=== PATIENT | female | born 1960 | race Caucasian/White ===

== ENCOUNTER 2018-05-27 18:26 | Emergency (ER) | payer BC ==
[2018-05-27] MEDS ORDERED: fentaNYL* 50 MCG/ML 2 ML VIAL (100 MCG VIAL) IV SLOW PU ONE (21:49)
[2018-05-27] MEDS ORDERED: Midazolam* 1 MG/ML 5 ML VIAL (5 MG) SLOW PUSH ONE (21:49)
[2018-05-27] MEDS ORDERED: NS 0.9% 1000 ML** 1,000 ML IV ONE (21:50)
[2018-05-28 01:03] VITALS: BP 160/97
--- NOTE | 2018-05-28 04:44 | ED ---
Upper Extremity Pain - HPI Summary HPI Summary: The patient is a 57 year old female who [facility] chief complaint of right shoulder pain. The patient was performing a "wheel out" when she heard a "popping" sound. The onset was 1800 03/26/19 and the patient was exercising. The pain is located to be at the top of the deltoid according to the patient. The patient is in pain distress and is unable to move the right shoulder significantly compared to baseline. The pain is rated to be 10/10 in severity. The symptoms are aggravated by movement. The symptoms are alleviated by nothing. - History of Current Complaint Chief Complaint: EDExtremityUpper Stated Complaint: RIGHT SHOULDER INJURY Time Seen by Provider: 05/27/18 21:40 Hx Obtained From: Patient Mechanism Of Injury: Other - Exercising Onset/Duration: Started Hours Ago - at 1800 on 03/26/19 Timing: Constant Severity Initially: Severe Severity Currently: Severe Pain Location: Shoulder - Right Aggravating Factor(s): Movement Alleviating Factor(s): Nothing Associated Signs & Symptoms: Positive: Negative - Allergies/Home Medications Allergies/Adverse Reactions: Allergies Allergy/AdvReac Type Severity Reaction Status Date / Time aspirin Allergy Shortness Verified 05/27/18 19:01 of Breath Sulfa (Sulfonamide Allergy Rash And Verified 05/27/18 19:01 Antibiotics) Itching PMH/Surg Hx/FS Hx/Imm Hx Endocrine/Hematology History: Denies: Hx Diabetes, Hx Thyroid Disease Cardiovascular History: Denies: Hx Hypercholesterolemia, Hx Hypertension, Hx Pacemaker/ICD, Hx Peripheral Vascular Disease Respiratory History: Reports: Hx Asthma Denies: Hx Chronic Obstructive Pulmonary Disease (COPD) GI History: Reports: Hx Gastroesophageal Reflux Disease - well controlled Denies: Hx Ulcer Musculoskeletal History: Reports: Hx Arthritis - left ankle, Hx Osteoporosis Denies: Hx Rheumatoid Arthritis Sensory History: Reports: Hx Contacts or Glasses - READING GLASSES Denies: Hx Cataracts, Hx Glaucoma, Hx Hearing Aid Opthamlomology History: Reports: Hx Contacts or Glasses - READING GLASSES Denies: Hx Cataracts, Hx Glaucoma Neurological History: Denies: Hx Headaches, Hx Seizures, Hx Transient Ischemic Attacks (TIA) Psychiatric History: Denies: Hx Anxiety, Hx Depression, Hx Panic Disorder - Surgical History Surgery Procedure, Year, and Place: sinus polyp removal x3. Right foot metal plate (2010). ORIF LEFT ANKLE 2014 [facility] Hx Anesthesia Reactions: No Infectious Disease History: No Infectious Disease History: Denies: Hx Clostridium Difficile, Hx Hepatitis, Hx Human Immunodeficiency Virus (HIV), Hx of Known/Suspected MRSA, Hx Shingles, Hx Tuberculosis, History Other Infectious Disease, Traveled Outside the [place] in Last 30 Days - Family History Known Family History: Positive: Non-Contributory - Social History Alcohol Use: Daily Alcohol Amount: 1-2 glasses of wine daily Hx Substance Use: No Substance Use Type: Reports: None Hx Tobacco Use: No Smoking Status (MU): Former Smoker Have You Smoked in the Last Year: No Review of Systems Constitutional: Negative Eyes: Negative ENT: Negative Cardiovascular: Negative Respiratory: Negative Gastrointestinal: Negative Genitourinary: Negative Musculoskeletal: Other - Right Shoulder pain Skin: Negative Neurological: Negative Positive: Anxious - Pain Distress All Other Systems Reviewed And Are Negative: Yes Physical Exam - Summary Physical Exam Summary: VITAL SIGNS: Reviewed. GENERAL: Patient is a well-developed and nourished (FEMALE) who is lying comfortable in the stretcher. Patient is not in any acute respiratory distress. HEAD AND FACE: No signs of trauma. No ecchymosis, hematomas or skull depressions. No sinus tenderness. EYES: PERRLA, EOMI x 2, No injected conjunctiva, no nystagmus. EARS: Hearing grossly intact. Ear canals and tympanic membranes are within normal limits. MOUTH: Oropharynx within normal limits. NECK: Supple, trachea is midline, no adenopathy, no JVD, no carotid bruit, no c- spine tenderness, neck with full ROM. CHEST: Symmetric, no tenderness at palpation LUNGS: Clear to auscultation bilaterally. No wheezing or crackles. CVS: Regular rate and rhythm, S1 and S2 present, no murmurs or gallops appreciated. ABDOMEN: Soft, non-tender. No signs of distention. No rebound no guarding, and no masses palpated. Bowel sounds are normal. EXTREMITIES: decreased range of motion of Right Shoulder because of pain NEURO: Alert and oriented x 3. No acute neurological deficits. Speech is normal and follows commands. Neuro exam in Intact SKIN: Dry and warm Triage Information Reviewed: Yes Vital Signs On Initial Exam: Initial Vitals Temp Pulse Resp BP Pulse Ox 99.0 F 76 18 182/91 99 05/27/18 18:55 05/27/18 18:55 05/27/18 18:55 05/27/18 18:55 05/27/18 18:55 Vital Signs Reviewed: Yes Procedures - Procedure Summary Procedure Summary: Moderate Sedation: Following moderate sedation protocol: Patient given 5 mg of Versed and 100 mg of fentanyl via IV. Moderate sedation accomplished for procedure Vital signs remained stable through out procedure. No reversal agents used Sedation lasted 15 minutes. We used traction/counter traction and an attempt to reduce right shoulder dislocation was done. - Joint Reduction Right Joint Reduction Site: shoulder (R) Conscious Sedation: Yes - Moderate Sedation protocol described in Procedural Summary. Reduction Attempts: 1 - Using Traction/counter Traction Post Joint Reduction Film: joint reduced Diagnostics - Vital Signs Vital Signs Temp Pulse Resp BP Pulse Ox 05/28/18 01:02 98.2 F 74 18 160/97 97 05/27/18 22:39 69 164/82 100 05/27/18 22:34 70 164/104 99 05/27/18 22:29 69 171/90 97 05/27/18 22:24 75 149/99 100 05/27/18 22:19 85 16 157/82 100 05/27/18 22:15 90 163/91 100 05/27/18 22:00 77 14 100 05/27/18 21:54 82 164/84 100 05/27/18 20:56 98.4 F 81 20 151/78 100 05/27/18 18:55 99.0 F 76 18 182/91 99 - Laboratory Lab Statement: Any lab studies that have been ordered have been reviewed, and results considered in the medical decision making process. - Radiology First Shoulder X-ray Radiology Interpretation Completed By: ED Physician Summary of Radiographic Findings: First shoulder X-ray reveals dislocation versus subluxation of the right shoulder as per ED Physcian. Post-reduction Shoulder X-ray Radiology Interpretation Completed By: ED Physician Summary of Radiographic Findings: Post Reduction shoulder X-ray reveals dislocation vs subluxation of the right shoulder no change from previous X-ray as per ED Physician. - CT Upper Extermity CT CT Interpretation Completed By: Radiologist Summary of CT Findings: Upper Extremity CT reveals as per radiologist report: 1. Anterior inferior dislocation of left shoulder with fairly extensive. fragmentation of the anterior mid to lower bony glenoid. There is an old. Hill- Sachs lesion of the humeral head without acute humeral fracture seen. 2. Associated hemarthrosis. The ED Physician has reviewed this radiology report. Course/Dx - Course Course Of Treatment: The patient is a 57 year old female who is presenting to the [facility] with a chief complaint of right shoulder pain. The patient recieved an intial right shoulder X-ray revealing dislocation versus subluxation signs. We consulted Dr. Camejo at 2140 and he recommended a Anxillary lateral view of a X-ray of the Right shoulder. After viewing the X-ray results at 2210, he recommended reviewing a CT scan of the right shoulder. Upon viewing the CT results; he recommends that the patient follow up with him within 1 day and that nothing needs to be done at this point other than a sling for the patient' s arm. The patient recieved a joint reduction of the right shoulder with moderate conscious sedation. The patient was given a sling and we discussed this plan. The patient was agreeable to discharge and was discharged home. The dx will be glenoid fracture and subluxation of the right shoulder. - Diagnoses Provider Diagnoses: Subluxation of right shoulder joint, Glenoid fracture of shoulder - Physician Notifications Discussed Care of Patient With: Hola Camejo - We consulted protocol and patient care. Time Discussed With Above Provider: 21:40 Instructed by Provider To: Other - Joint reduction and Imaging orders along with a recommendation for the patient to follow up with him for the following day. Discharge - Sign-Out/Discharge Documenting (check all that apply): Patient Departure - Discharge Home Patient Received Moderate/Deep Sedation with Procedure: Yes - Moderate Sedation Protocol described in Procedural summary - Discharge Plan Condition: Stable Disposition: HOME Prescriptions: oxyCODONE/Acetamin 5/325 MG* [Percocet 5/325 TAB*] 1 tab PO Q6H PRN #14 tab MDD 4 PRN Reason: Pain Patient Education Materials: Shoulder Dislocation (ED), Procedural Sedation (ED ) Referrals: Hola Camejo MD [Medical Doctor] - Marlene Goodwin MD [Primary Care Provider] - Additional Instructions: RETURN TO THE EMERGENCY DEPARTMENT FOR CHANGING OR WORSENING SYMPTOMS. FOLLOW UP WITH Dr. Camejo Tomorrow. We recommend using the sling for shoulder until then. - Attestation Statements Document Initiated by Scribe: Yes Documenting Scribe: Jeffery Callahan Provider For Whom Scribe is Documenting (Include Credential): Dr. Romelia Sharma Scribe Attestation: IJeffery, scribed for Dr. Romelia Sharma on 05/28/18 at 0520. Status of Scribe Document: Ready
== END 2018-05-28 01:02 | disposition home or self-care (01) ==
LOC: ED 18:26
DX: S43.001A Unspecified subluxation of right shoulder joint, initial encounter (principal); S42.141A Displaced fracture of glenoid cavity of scapula, right shoulder, initial encounter for closed fracture; Z87.891 Personal history of nicotine dependence; Y93.B9 Activity, other involving muscle strengthening exercises; Y92.9 Unspecified place or not applicable
CPT/HCPCS: 23650; 96361; 96374; 96375; 99283; J2250; J3010

== ENCOUNTER 2018-07-20 10:35 | Emergency (ER) | payer BC ==
--- OUTSIDE RECORDS SUMMARY | 2018-07-20 10:46 | XMS REPORT | Continuity of Care Document ---
:1960 External Reference #:[id number] Author Name Eli Knight Care Team Providers Name Role Phone Marlene Goodwin MD Primary Care Physician Unavailable Payers Date Identification Numbers Payment Provider Subscriber Effective: 2018 Policy Number: [id number] GENEVIEVE Recinos PayID: [id number] [address] [phone] [place] Kauffman [address] Effective: 2018 Policy Number: [id number] Chandni Recinos Onset: 2018 Group Number: [id number] [address] [address] Group Name: F: [phone] [place] [address] PayID: [id number] Onset: 2012 Policy Number: [id number] Chandni Recinos Group Name: [phone] Fax [address] [phone] PayID: [id number] [place], [place] Advance Directives Description No Information Available Problems Description No Information Family History Date Family Member(s) Observation Comments General Diabetes General Stroke General Cancer : (age Father due to Hyperlipidemia 75 Years) Hypertension : (age Mother due to Cancer, HTN, Stroke, DM, CAD ? age 81 Years) Breast 70's (Stents) - Heavy Smoker First Son 19 Second Son 17 Seizure disorder, High function Autism First Brother Hypertension Hyperlipidemia First Brother 56 Second Brother Hypertension Hyperlipidemia Second Brother 55 First Sister Heat disease Arrhythmia, Congenital defect of aortic valve First Sister 53 Social History Type Date Description Comments Sex Unknown Marital Status Lives With Spouse Occupation [employer] ETOH Use Currently consumes 7 per week alcohol Tobacco Use Start: Unknown End: Patient is a former smoked a little in Unknown smoker college Smoking Status Reviewed: 07/09/18 Patient is a former smoked a little in smoker college Exercise Type/Frequency Exercises regularly Daily Allergies, Adverse Reactions, Alerts Date Description Reaction Status Severity Comments 08/01/2010 Sulfa Active 08/01/2010 Aspirin Active Medications Medication Date Status Form Strength Qnty SIG Indications Ordering Provider Serevent Diskus 08/01/ Active Aerosol 50mcg/Dos 1unit 1 puff Inez 2010 e s twice daily Fritz Crowley, FACP Nasacort Aq 08/01/ Active Aerosol 55mcg/Act 1unit use 1 spray Inez2010 s ea nostril Carline, q prn M.D., FACP Zyrtec Allergy 08/01/ Active Capsules 10mg 30cap 1 capsule 2010 s by mouth Carline, daily M.D., FACP Xolair / Active Solution 150mg Unknown 0000 Rec Singulair / Active Chewtabs 4mg 30uni 1 tablet q Unknown 0000 ts hours sleep Qvar / Active Aerosol 80mcg/Act 2 puff Unknown 0000 twice a day Symbicort 00/ Active Unknown 0000 Biotin 00/ Active Unknown 0000 Vitamin B12 / Active Unknown 0000 Citracal +D3 / Active Unknown 0000 Centrum / Active Unknown 0000 Align / Active Unknown 0000 Krill Oil / Active Unknown [place]-3 0000 Zantac 75 00/00/ Active Unknown 0000 Keflex /08/ Hx Capsules 500mg 28cap 1 tab by Iraj 2015 - s mouth four Hank, 05/29/ times a day M.D. 2019 Oxycodone HCL 08/22/ Hx Tablets 5mg 40tab 1-2 tabs by Iraj 2015 - s mouth every Hank, 05/29/ 4-6 hours M.D. 2019 as needed Lotrimin Ultra 10/06/ Hx Cream 1% 1tube apply to Iraj 2014 - heel skin Hank 08/09/ twice daily M.D. 2016 Knee Scooter 04/01/ Hx 1unit 824.8 Iraj Mckinney 08/09/ M.D. 2016 Ranitidine HCL 08/01/ Hx Solution 150mg/6ML take by Inez 2010 - mouth twice Carline, 05/29/ daily M.D., FACP 2019 Miacalcin 03/02/ Hx Solution 200Unit/M 3.7ml 1 inh Vibha 2009 - L intranasal Cotton, 10/26/ daily M.D. 2010 Flovent HFA / Hx Aerosol 110mcg/Ac 12gm 2 puffs Inez 0000 - t twice daily Carline, 08/01/ M.D., FACP 2010 Triamcinolone / Hx as directed Unknown Acetonide 0000 - 2018 Immunizations CPT Code Status Date Vaccine Lot # [id number] Given 02/15/2009 Influenza Virus Vaccine, Pandemic Formulation 12223 Given 02/15/2009 Administration Swine Flu Shot 19476 Given 02/06/2008 Influenza Virus 3Yrs & Over 23490 Given 02/06/2008 Influenza Virus 3Yrs & Over Vital Signs Date Vital Result Comment 07/09/2018 11:08am Height 60 inches 5'0" Weight 116.00 lb BP Systolic 118 mmHg BP Diastolic 64 mmHg Pain Level 0 BMI (Body Mass Index) 22.7 kg/m2 06/13/2018 11:29am Height 60 inches 5'0" Weight 115.00 lb BP Systolic 138 mmHg BP Diastolic 102 mmHg Pain Level 0 varies w/ movement BMI (Body Mass Index) 22.5 kg/m2 05/30/2018 1:18pm Height 60 inches 5'0" Weight 115.00 lb Heart Rate 100 /min BP Systolic 170 mmHg BP Diastolic 94 mmHg Respiratory Rate 18 /min Pain Level 0 Increases with activity BMI (Body Mass Index) 22.5 kg/m2 09/15/2015 12:58pm Height 60 inches 5'0" Weight 109.00 lb Heart Rate 60 /min BP Systolic Sitting 110 mmHg BP Diastolic Sitting 68 mmHg Respiratory Rate 16 /min Body Temperature 99.1 F Pain Level 7 when area is touched BMI (Body Mass Index) 21.3 kg/m2 09/03/2015 11:39am Height 60 inches 5'0" Weight 109.00 lb Body Temperature 99.2 F Pain Level 0 BMI (Body Mass Index) 21.3 kg/m2 08/10/2015 3:52pm Height 60 inches 5'0" Weight 109.00 lb Heart Rate 74 /min BP Systolic 195 mmHg BP Diastolic 99 mmHg BMI (Body Mass Index) 21.3 kg/m2 01/05/2015 1:50pm Height 60 inches 5'0" Weight 110.00 lb Pain Level 0 BMI (Body Mass Index) 21.5 kg/m2 10/06/2014 2:45pm Height 60 inches 5'0" Weight 110.00 lb Pain Level 0 BMI (Body Mass Index) 21.5 kg/m2 07/07/2014 3:41pm Height 60 inches 5'0" Weight 110.00 lb Pain Level 0 BMI (Body Mass Index) 21.5 kg/m2 06/09/2014 2:37pm Height 60 inches 5'0" Weight 110.00 lb Pain Level 4 BMI (Body Mass Index) 21.5 kg/m2 05/12/2014 3:08pm Height 60 inches 5'0" Weight 110.00 lb Pain Level 0 BMI (Body Mass Index) 21.5 kg/m2 04/17/2014 9:57am Height 60 inches 5'0" Weight 110.00 lb Heart Rate 65 /min Body Temperature 98.7 F Pain Level 6 BMI (Body Mass Index) 21.5 kg/m2 12/26/2012 9:11am Height 60 inches 5'0" Weight 107.00 lb Heart Rate 71 /min BP Systolic 132 mmHg BP Diastolic 79 mmHg BMI (Body Mass Index) 20.9 kg/m2 10/26/2010 2:48pm Height 59 inches 4'11" Weight 106.00 lb Heart Rate 64 /min BP Systolic Sitting 108 mmHg BP Diastolic Sitting 76 mmHg BMI (Body Mass Index) 21.4 kg/m2 08/01/2010 2:54pm Height 59 inches 4'11" Weight 106.00 lb BMI (Body Mass Index) 21.4 kg/m2 Results Test Date Facility Test Result H/L Range Note Laboratory test 08/23/2015 [facility] Surgical SEE RESULT [address] [place] [address] [phone] CBC No Diff 04/06/2014 [facility] White Blood 4.9 10^3/uL N 4.8-10.[address] [place] [address] [phone] Red Blood Count 4.37 10^6/uL N 4.0-5.4 Hemoglobin 14.2 g/dL N 12.0-16.0 Hematocrit 41 % N 35-47 Mean Corpuscular Volume 95 fL N 80-97 Mean Corpuscular Hemoglobin 32 pg High 27-31 Mean Corpuscular HGB Conc 34 g/dL N 31-36 Red Cell Distribution Width 13 % N 10.5-15 Platelet Count 305 10^3/uL N 150-450 Mean Platelet Volume 6 um3 Low 7.4-10.4 1 SEE RESULT BELOW Name: ARVIN RECINOS : [address]: Iraj Mckinney MD Acct: [id number] Unit: [id number] AGE: 55 Location: OR Re08/23/15 SEX: F Status: REG [facility] [place] SPEC: [id number] DARNELL: 08/23/15- SUBM DR: Iraj Mckinney MD REQ: [id number] RECD: 08/23/15-1225 STATUS: SOUT _ ORDERED: LEVEL I FINAL DIAGNOSIS Left ankle, excision: Foreign body (orthopedic hardware) (Gross diagnosis). PRE-OPERATIVE DIAGNOSIS Painful hardware left ankle. GROSS DESCRIPTION The specimen is received fresh labeled, Left Ankle Hardware, and consists of two silver metallic elongated plates measuring 5.7 x 0.9 x 0.1 cm and 8.1 x 0.9 x 0.1 cm. The following inscriptions are identified, respectively: [phone] [id number]; [phone] [id number]. Received separately in the same container are ten silver metallic threaded and partially threaded jerri-headed screws ranging from 1.2 x 0.3 cm to 4.0 x 0.3 cm. Per established hospital medical staff protocol, no tissue is submitted. Gross only. Signed (signature on file) Sugey Reyes MD 1030 END OF REPORT * ML=Testing performed at Main Lab DEPARTMENT OF PATHOLOGY, [address] [place] [address] Tin Mcnally M.D. Director [facility] # [id number] Procedures Date Code Description Status 08/23/2015 Removal Implant Deep Wire,Screw Nail,Carlos Or Plate Completed 08/23/2015 Removal Implant Deep Wire,Screw Nail,Carlos Or Plate Completed 04/17/2014 79657 Rad Exam; Foot Comp Completed 04/17/2014 49648 Short Leg Cast Completed 04/06/2014 21749 ORIF Open TX Bimalleolar Ankle FX Includes Internal Completed Fixation 04/06/2014 44356 ORIF Open TX Bimalleolar Ankle FX Includes Internal Completed Fixation 09/19/2010 [id number] Bone Mineral Density Test Completed 09/16/2010 99338679 Mammogram Completed 08/17/2010 [id number] Colonoscopy Completed 02/18/2009 [id number] Bone Mineral Density Test Completed 02/18/2009 [id number] Mammogram Completed Encounters Type Date Location Provider Dx Diagnosis Office Visit 06/13/2018 Orthopedic Hola Romo S42.141D Disp fx of 11:15a Services Of Charlie Camejo MD glenoid cav of scapula, r ldr, 7thD S43.011D Anterior subluxation of right humerus, subsequent encounter S46.011D Strain of musc/tend the rotator cuff of right shoulder, subs Office Visit 05/30/2018 1:00p Orthopedic Hola Romo S42.141A Disp fx of Services Of MD Nell glenoid cavity C.M.A. of scapula, right shoulder, init S43.011A Anterior subluxation of right humerus, initial encounter Office Visit 08/10/2015 Orthopedic Iraj T84.84xD Pain due to internal 3:50p Services Of Fritz Mckinney orthopedic prosth C.M.A. dev/grft, subs Office Visit 01/05/2015 Orthopedic Iraj S82.842D Displ bimalleol fx l 1:50p Services Of Fritz Mckinney low leg, subs for C.M.A. clos fx w routn heal Office Visit 10/06/2014 Orthopedic Iraj 110.4 Dermatophytosis Foot 2:15p Services Of Fritz Mckinney C.M.AMario Office Visit 07/07/2014 Orthopedic Iraj 824.8 FX Ankle Unspec 3:15p Services Of Fritz Mckinney Closed C.M.A. 734 Flat Foot 715.37 Osteoarthrosis Localzd Not Spec Prime Or 2Ndy Ankle & Foot 824.4 FX Ankle Bimalleolar Closed V54.09 Other Aftercare Involving Internal Fixation Device Office Visit 04/17/2014 9:30a Orthopedic Services Iraj Mckinney 824.8 FX Ankle Of Jose.MSelene Hu Unspec Closed V54.09 Other Aftercare Involving Internal Fixation Device V58.32 Encounter For Removal Of Sutures 715.17 Osteoarthrosis Localized Prim Ankle & Foot V53.7 Fitting & Adjustment Other Device Orthopedic Office Visit 04/06/2014 7:00a Orthopedic Iraj 824.4 FX Ankle Services Of Fritz Mckinney Bimalleolar Closed C.M.A. Office Visit 12/26/2012 9:00a Orthopedic Keith 844.9 Sprains & Strains Services Of Fritz Mims Knee & Leg Unspec C.M.A. Office Visit 10/26/2010 3:00p DO Not Use Dasrhana Varn, 733.00 Osteoporosis [facility] N.[facility]. Unspec Office Visit 08/01/2010 3:00p DO Not Use Darshana Varn, V70.0 Examination [facility] [facility] General Medical Routine AT Health Care Facility V72.31 Routine Lube Technician Examination 272.4 Hyperlipidemia Other Unspec 493.90 Asthma Unspec W/O Status Asthmaticus 733.90 Bone & Cartilage Disorder Unspec Office 02/09/2009 DO Not Use Darshana V72.31 Routine Lube Technician Examination Visit 10:45a [facility] Varn, N.P. Office 04/16/2008 DO Not Use Darshana 272.4 Hyperlipidemia Other Visit 10:45a [facility] Varn, N.P. Unspec Office 12/17/2007 DO Not Use Darshana 272.0 Hypercholesterolemia Visit 11:30a [facility] Varn, N.P. Pure Office 12/03/2007 DO Not Use Darshana V72.31 Routine Lube Technician Examination Visit 2:30p [facility] Varn, N.P. Plan of Treatment Future Appointment(s):08/06/2018 1:45 pm - Hola Camejo MD at [facility]07/09/2018 - Hola Camejo, MDS42.141D Displaced fracture of glenoid cavity of scapula, right shoulNew Therapy: Physical TherapyFollow up:Follow up: 4 weeks
[2018-07-20] MEDS ORDERED: predniSONE TAB* 20 MG PO ONE (11:03)
[2018-07-20] MEDS ORDERED: Albuterol/Ipratropium NEB.SOL* Albuterol 2.5 MG/Ipratropium 0.5 MG 3 ML INH ONE (11:07)
--- NOTE | 2018-07-20 11:07 | ED ---
Shortness of Breath - HPI Summary HPI Summary: Patient is a 58-year-old female with a history of COPD/asthma presenting to the ED with a one-week worsening history of shortness of breath. She states she has been taking her albuterol inhaler approximately every hour for relief and this has been worsening. She is currently on Xolair, but has been out of this prescription 2 weeks. She believes this is the reason for her worsening shortness of breath. She has also not been on steroids recently. No recent history of antibiotics. She endorses a cough which is wet, this is without production. She denies any fevers, sweats, chills. She is able to speak in full sentences, but due to her albuterol inhaler use, she has been having shakes more frequently. She is in no acute distress on arrival. She is currently a patient of Dr. Goodwin and Dr. Vazquez. - History of Current Complaint Chief Complaint: EDShortnessOfBreath Time Seen by Provider: 07/20/18 10:50 Hx Obtained From: Patient Onset/Duration: Sudden Onset Timing: Constant Current Severity: Mild Dyspnea At: Rest Associated Signs & Symptoms: Negative - Risk Factors Pulmonary Embolism: Negative Cardiac: Negative Pseudomonas: Negative Tuberculosis: Negative - Allergy/Home Medications Allergies/Adverse Reactions: Allergies Allergy/AdvReac Type Severity Reaction Status Date / Time aspirin Allergy Shortness Verified 07/20/18 10:37 of Breath Sulfa (Sulfonamide Allergy Rash And Verified 07/20/18 10:37 Antibiotics) Itching PMH/Surg Hx/FS Hx/Imm Hx Previously Healthy: Yes Endocrine/Hematology History: Denies: Hx Diabetes, Hx Thyroid Disease Cardiovascular History: Denies: Hx Hypercholesterolemia, Hx Hypertension, Hx Pacemaker/ICD, Hx Peripheral Vascular Disease Respiratory History: Reports: Hx Asthma Denies: Hx Chronic Obstructive Pulmonary Disease (COPD) GI History: Reports: Hx Gastroesophageal Reflux Disease - well controlled Denies: Hx Ulcer History: Denies: Hx Renal Disease Musculoskeletal History: Reports: Hx Arthritis - left ankle, Hx Osteoporosis Denies: Hx Rheumatoid Arthritis Sensory History: Reports: Hx Contacts or Glasses - READING GLASSES Denies: Hx Cataracts, Hx Glaucoma, Hx Hearing Aid Opthamlomology History: Reports: Hx Contacts or Glasses - READING GLASSES Denies: Hx Cataracts, Hx Glaucoma Neurological History: Denies: Hx Headaches, Hx Seizures, Hx Transient Ischemic Attacks (TIA) Psychiatric History: Denies: Hx Anxiety, Hx Depression, Hx Panic Disorder - Surgical History Surgery Procedure, Year, and Place: sinus polyp removal x3. Right foot metal plate (2010). ORIF LEFT ANKLE 2014 [facility] Hx Anesthesia Reactions: No - Immunization History Hx Pertussis Vaccination: No Immunizations Up to Date: Yes Infectious Disease History: No Infectious Disease History: Denies: Hx Clostridium Difficile, Hx Hepatitis, Hx Human Immunodeficiency Virus (HIV), Hx of Known/Suspected MRSA, Hx Shingles, Hx Tuberculosis, History Other Infectious Disease, Traveled Outside the [place] in Last 30 Days - Family History Known Family History: Positive: None, Non-Contributory - Social History Occupation: Employed Full-time Lives: With Family Alcohol Use: Daily Alcohol Amount: 1-2 glasses of wine daily Hx Substance Use: No Substance Use Type: Reports: None Hx Tobacco Use: No Smoking Status (MU): Former Smoker Have You Smoked in the Last Year: No Review of Systems Constitutional: Negative Negative: Fever, Chills, Fatigue, Skin Diaphoresis Negative: Palpitations, Chest Pain Positive: Shortness Of Breath, Cough Genitourinary: Negative Positive: no symptoms reported, see HPI Negative: Arthralgia, Myalgia Skin: Negative Neurological: Negative All Other Systems Reviewed And Are Negative: Yes Physical Exam Triage Information Reviewed: Yes Vital Signs On Initial Exam: Initial Vitals Temp Pulse Resp BP Pulse Ox 97.4 F 95 20 163/98 100 07/20/18 10:37 07/20/18 10:37 07/20/18 10:37 07/20/18 10:37 07/20/18 10:37 Vital Signs Reviewed: Yes Appearance: Positive: Well-Appearing, Well-Nourished Skin: Positive: Warm, Skin Color Reflects Adequate Perfusion Head/Face: Positive: Normal Head/Face Inspection Eyes: Positive: EOMI, Conjunctiva Clear Neck: Positive: Supple, No Lymphadenopathy Respiratory/Lung Sounds: Positive: Wheezes Cardiovascular: Positive: RRR, Pulses are Symmetrical in both Upper and Lower Extremities Musculoskeletal: Positive: Strength/ROM Intact Neurological: Positive: Speech Normal Psychiatric: Positive: Normal, Affect/Mood Appropriate AVPU Assessment: Alert Diagnostics - Vital Signs Vital Signs Temp Pulse Resp BP Pulse Ox 07/20/18 10:37 97.4 F 95 20 163/98 100 - Laboratory Result Diagrams: 07/20/18 11:18 07/20/18 11:18 Lab Statement: Any lab studies that have been ordered have been reviewed, and results considered in the medical decision making process. Course/Dx - Course Course Of Treatment: During the course of treatment, the patient is evaluated for worsening shortness of breath which has been over 1 week. She has been out of her Xolair prescription 2 weeks. History of asthma. She states she continues to exercise, but is endorsing more frequent episodes of shortness of breath throughout this process. She is able to speak in full sentences on arrival and she appears in no acute distress. Lungs are wheezing throughout without rhonchorous sounds. She is afebrile and other vital signs are stable on arrival. Chest x-ray obtained which shows no acute cardiopulmonary disease. Labs obtained which are WNL. She is given prednisone 60 mg in the ED as well as a DuoNeb. This with improvement. She has an appointment next week to get is alert injection. She will be given a short course of steroids including 60 mg, 40 mg then 20 mg subsequently. After DuoNeb, she states she is feeling much improved and is denying any shortness of breath at this time. She is okay for discharge at this time. - Diagnoses Differential Diagnosis/HQI/PQRI: Positive: Asthma, Bronchitis Provider Diagnoses: Asthma exacerbation Discharge - Sign-Out/Discharge Documenting (check all that apply): Patient Departure Patient Received Moderate/Deep Sedation with Procedure: No - Discharge Plan Condition: Stable Disposition: HOME Prescriptions: Albuterol 2.5MG/3ML (0.083%)* [Ventolin 2.5 MG/3 ML NEB.BUBBA*] 2.5 mg INH Q4H #1 neb.bubba predniSONE [Prednisone 20 MG TAB] 20 mg PO SEE INSTRUCTIONS #12 tablet Patient Education Materials: Shortness of Breath (ED) Referrals: Marlene Goodwin MD [Primary Care Provider] - Additional Instructions: Prednisone: Take 3 tabs on day 1, 2; 2 tabs on day 3, 4; 1 tab on day 5, 6 - Billing Disposition and Condition Condition: STABLE Disposition: Home
[2018-07-20] MEDS ORDERED: Albuterol/Ipratropium NEB.SOL* Albuterol 2.5 MG/Ipratropium 0.5 MG 3 ML ONE (11:08)
[2018-07-20 11:25] LABS: ABS Basophils 0.1 10^3/ul (0-0.2); ABS Eosinophils 0.5 10^3/ul (0-0.6); ABS Lymphocytes 1.2 10^3/ul (1.0-4.8); ABS Monocytes 0.7 10^3/ul (0-0.8); ABS Neutrophils 4.7 10^3/ul (1.5-7.7); ABS Nucleated RBC 0 10^3/ul; Eosinophil % 7.6 %; Hematocrit 41 % (33-41); Hemoglobin 14.1 g/dL (12.0-16.0); Lymphocyte % 16.2 %; Mean Corpuscular HGB Conc 35 g/dL (31-36); Mean Corpuscular Hemoglobin 32 pg (27-31); Mean Corpuscular Volume 94 fL (80-97); Mean Platelet Volume 6.1 fL (7.4-10.4); Nucleated Red Blood Cells % 0; Platelet Count 394 10^3/uL (150-450); Red Blood Count 4.39 10^6 /uL (3.70-4.87); Red Cell Distribution Width 12 % (10.5-15); White Blood Count 7.2 10^3/uL (3.5-10.8)
[2018-07-20 11:44] LABS: Albumin 4.7 g/dL (3.2-5.2); Albumin/Globulin Ratio 1.4 (1-3); Calcium 10.2 mg/dL (8.6-10.3); EGFR African American 121.5 (>60); EGFR Non-African American 100.4 (>60); Globulin 3.4 g/dL (2-4); Potassium 3.4 mmol/L (3.5-5.0); Total Bilirubin 0.5 mg/dL (0.2-1.0); Total Protein 8.1 g/dL (6.4-8.9)
[2018-07-20 12:34] VITALS: BP 146/92
== END 2018-07-20 12:33 | disposition home or self-care (01) ==
LOC: ED 10:35
DX: J45.901 Unspecified asthma with (acute) exacerbation (principal); J44.9 Chronic obstructive pulmonary disease, unspecified; Z87.891 Personal history of nicotine dependence; K21.9 Gastro-esophageal reflux disease without esophagitis
CPT/HCPCS: 36415; 71046; 80053; 85025; 99284; A9270-GY; J7512

== ENCOUNTER 2018-12-31 19:00 | Emergency (ER) | payer BC, OTHER ==
--- OUTSIDE RECORDS SUMMARY | 2018-12-31 19:23 | XMS REPORT | Summary of Care ---
:1960 Author Organization [facility] Address [address] [place] [place] [address] Care Team Providers Name Role Phone Marlene Goodwin MD Primary Care Provider Reason for Referral Refer to Department Only (Routine) Status Reason Specialty Diagnoses / Referred By Referred To Procedures Contact Contact Pending Review Physical Therapy Diagnoses Hip pain, acute, right Marlene Goodwin MD [address] [place] [address] Reason for Visit Reason Comments Results f/u dexa done 10-31-18 Encounter Details Date Type Department Care Team Description 12/18/2018 Office Visit [place] [facility] Marlene Goodwin MD Hip pain, acute, right (Primary Dx); Medicine [address] [facility] Osteoporosis, unspecified osteoporosis type, unspecified pathological fracture presence [address] [place] [address] [place] [address] [phone] Allergies Active Allergy Reactions Severity Noted Date Comments Aspirin Respiratory Reaction 06/02/2008 Erythromycin GI Reaction 06/02/2008 Raloxifene Hydrochloride Anaphylaxis 05/13/2012 Fosamax Rash 05/13/2012 Aches/ rash Sulfacetamide Sodium Hives 06/02/2008 documented as of this encounter (statuses as of 12/18/2018) Medications Medication Sig Dispensed Refills Start Date End Date Status Multiple Take by mouth. 0 Active Vitamins-Minerals (CENTRUM CARDIO PO) [place]-3 Fatty Acids Take by mouth 0 Active (FISH OIL PO) DAILY. Probiotic Product Take by mouth. 0 Active (ALIGN) 4 MG Oral Cap Biotin 5000 MCG Oral Take by mouth. 0 Active Cap cetirizine (ZYRTEC) Take 10 mg by 0 Active 10 MG Oral Tab mouth DAILY. calcium Take 1 Tab by 0 Active carbonate-vitamin D mouth TWO TIMES (CALTRATE-D) 600-400 DAILY BEFORE MG-UNIT Oral Tab MEALS. albuterol HFA Take 2 Puffs by 18 g 5 02/26/2018 Active (VENTOLIN) 108 (90 inhalation EVERY Base) MCG/ACT FOUR HOURS Inhalation Aero Soln NEEDED (SOB). montelukast TAKE 1 TABLET BY 30 Tab 11 05/27/2018 Active (SINGULAIR) 10 MG MOUTH EVERY DAY Oral TabIndications: Eosinophilia omalizumab (XOLAIR) Inject 150 mg 1 mL 11 07/17/2018 07/18/2019 Active 150 MG/ML beneath the skin Subcutaneous EVERY 28 DAYS. Solution Prefilled Syringe albuterol 3 mL by 25 Bottle 3 07/22/2018 Active (PROVENTIL, Inhalation-SVN VENTOLIN) (2.5 route TWICE MG/3ML) 0.083% DAILY. And prn Inhalation Nebu up to 4x day SolnIndications: Bronchospasm budesonide-formotero Take 2 INHL by 10.2 Inhaler 5 07/22/2018 Active l fumarate inhalation TWICE (SYMBICORT) 160-4.5 DAILY. MCG/ACT Inhalation Aerosol Triamcinolone Belcher in nose. 0 Active Acetonide (NASACORT ALLERGY 24HR NA) ranitidine (ZANTAC) Take 150 mg by 0 Active 150 MG Oral Tab mouth TWICE DAILY. Risedronate Sodium Take 1 Tab by 3 Tab 3 12/18/2018 Active 150 MG Oral mouth EVERY TabIndications: THIRTY DAYS. Osteoporosis, unspecified osteoporosis type, unspecified pathological fracture presence Hospital, Clinic, or Other Ordered Dose Route Frequency Start Date End Date Status Facility Administered Medication omalizumab (XOLAIR) injection 150 mg SC [id number] 08/11/2016 Active 150 mgIndications: Persistent asthma documented as of this encounter (statuses as of 12/18/2018) Active Problems Problem Noted Date Obstructive chronic bronchitis with exacerbation 02/26/2018 Alcohol use 02/26/2018 Psoriasis 04/20/2015 Overview: Bottom of the foot - Followed by Dr Bryan Uncomplicated asthma 01/23/2014 Chronic maxillary sinusitis 05/08/2013 Chronic ethmoidal sinusitis 07/25/2012 Nasal septal perforation 07/25/2012 Elevated HDL 05/27/2012 Overview: 156 !!!!!!! Eosinophilia 05/27/2012 Osteopenia 05/27/2012 Overview: dxa 05/22 - - Intolerant to fosamax (GI and systemic)/ evista- Osteoporosis, unspecified 11/16/2010 Allergic rhinitis due to animal hair and dander 08/26/2009 Allergic rhinitis due to pollen 08/26/2009 Severe persistent allergic asthma 08/26/2009 Allergic rhinitis due to other allergen documented as of this encounter (statuses as of 12/18/2018) Resolved Problems Problem Noted Date Resolved Date Extrinsic asthma, unspecified 01/23/2014 Encounter for allergy testing 01/26/2015 Overview: 9.8.1994. Replaced inactive diagnosis documented as of this encounter (statuses as of 12/18/2018) Immunizations Name Administration Dates Next Due Influenza (IM) Preservative Free 01/03/2018 Rocephin (250 mg) 02/04/2013 TDAP Vaccine 12/30/2013 Xolair (omalizumab) (300 mg) 04/30/2008, 04/07/2008 Xolair 150mg 11/23/2017, 05/23/2016, 04/25/2016, 03/14/2016 03/14/2016, 02/08/2016, 12/14/2015, 11/09/2015, 10/05/2015, 08/31/2015, 02/23/2015, 01/26/2015, 01/01/2015, 12/01/2014, 10/30/2014, 07/28/2014, 06/26/2014, 05/29/2014, 04/24/2014, 03/20/2014, 01/23/2014, 12/19/2013, 11/21/2013, 10/21/2013, 09/12/2013, 08/15/2013, 06/13/2013, 04/22/2013, 03/14/2013, 02/07/2013, 01/10/2013, 11/29/2012, 11/01/2012, 06/04/2012, 04/05/2012, 03/08/2012, 02/01/2012, 01/02/2012, 12/07/2011, 11/01/2011, 10/06/2011, 08/30/2011, 08/01/2011, 07/07/2011, 03/07/2011, 01/30/2011, 12/06/2010, 08/01/2010, 07/01/2010, 05/06/2010, 04/05/2010, 03/01/2010, 02/02/2010, 01/04/2010, 12/07/2009, 10/29/2009, 10/04/2009, 08/26/2009, 07/01/2009, 05/27/2009, 04/26/2009, 04/05/2009, 02/03/2009, 01/01/2009, 12/01/2008, 11/03/2008, 10/06/2008, 09/03/2008, 07/29/2008, 06/30/2008, 06/04/2008 documented as of this encounter Social History Tobacco Use Types Packs/Day Years Used Date Former Smoker Cigarettes 0.5 10 Quit: 06/02/1979 Smokeless Tobacco: Never Used Alcohol Use Drinks/Week oz/Week Comments Yes 0 Standard drinks or equivalent 0.0 wine with dinner Sex Assigned at Date Recorded Not on file Job Start Date Occupation Industry Not on file Not on file Not on file Travel History Travel Start Travel End No recent travel history available. documented as of this encounter Last Filed Vital Signs Vital Sign Reading Time Taken Comments Blood Pressure 139/88 12/18/2018 3:38 PM EDT Pulse 96 12/18/2018 3:38 PM EDT Temperature - - Respiratory Rate - - Oxygen Saturation 100% 12/18/2018 3:38 PM EDT Inhaled Oxygen Concentration - - Weight 54 kg (119 lb) 12/18/2018 3:38 PM EDT Height 152.4 cm (5') 12/18/2018 3:38 PM EDT Body Mass Index 23.24 12/18/2018 3:38 PM EDT documented in this encounter Patient Instructions Patient InstructionsMarlene Goodwin MD - 12/18/2018 3:40 PM EDTBone health: 1. Take 1000- mg of Calcium/day divided dose and with a meal (better absorbed with fat ( calcium best out of The diet - Dairy - Winter ( in the can best) sardines) some vegetables -For example cabbage and partcularly bok mitchell 2. Take 800- IU Vit D in the form of cholecalficerol (D3). Avoid ergocalciferol (not absorbed well) 3. Weight bearing exercize (walking, etc.) and strength training 4. Daily exposure to sunlight (though not enought to turn skin pink) 5. I recommend visiting the following web site for more information on Vit D supplementation http://www.vitamindcSafeTool.[employer]atypi/vitaminDPharmacology.shtml Medicinal treatment- Slow down [employer] - bisphosphonates- Fosamax / actonel / reclast - yrly - injection- 5-7 years- Osteonecrosis of the jaw risk / Atypical fracture Prolia - Monoclonal Forteo- - Puts down hwang - 2 years- documented in this encounter Progress Notes Marlene Goodwin MD - 12/18/2018 3:40 PM EDT NAME:Jess Carrera 1960: 1960 ENC Date: 12/18/2018 CC: Chief Complaint Patient presents with Results f/u dexa done 10-31-18 Jess Carrera is a 58-y.o. female Has significant osteoporosis Right hip pain - No injury - Current Outpatient Medications Medication Sig albuterol (PROVENTIL, VENTOLIN) (2.5 MG/3ML) 0.083% Inhalation Nebu Soln 3 mL by Inhalation-SVN route TWICE DAILY. And prn up to 4x day albuterol HFA (VENTOLIN) 108 (90 Base) MCG/ACT Inhalation Aero Soln Take 2 Puffs by inhalation EVERY FOUR HOURS NEEDED (SOB). Biotin 5000 MCG Oral Cap Take by mouth. budesonide-formoterol fumarate (SYMBICORT) 160-4.5 MCG/ACT Inhalation Aerosol Take 2 INHL by inhalation TWICE DAILY. calcium carbonate-vitamin D (CALTRATE-D) 600-400 MG-UNIT Oral Tab Take 1 Tab by mouth TWO TIMES DAILY BEFORE MEALS. cetirizine (ZYRTEC) 10 MG Oral Tab Take 10 mg by mouth DAILY. montelukast (SINGULAIR) 10 MG Oral Tab TAKE 1 TABLET BY MOUTH EVERY DAY Multiple Vitamins-Minerals (CENTRUM CARDIO PO) Take by mouth. omalizumab (XOLAIR) 150 MG/ML Subcutaneous Solution Prefilled Syringe Inject 150 mg beneath the skin EVERY 28 DAYS. [place]-3 Fatty Acids (FISH OIL PO) Take by mouth DAILY. Probiotic Product (ALIGN) 4 MG Oral Cap Take by mouth. ranitidine (ZANTAC) 150 MG Oral Tab Take 150 mg by mouth TWICE DAILY. Triamcinolone Acetonide (NASACORT ALLERGY 24HR NA) Belcher in nose. Current Facility-Administered Medications Medication omalizumab (XOLAIR) injection 150 mg Patient Active Problem List Diagnosis Date Noted Obstructive chronic bronchitis with exacerbation (HCC) 02/26/2018 Alcohol use 02/26/2018 Psoriasis 04/20/2015 Bottom of the foot - Followed by Dr Bryan Uncomplicated asthma 01/23/2014 Chronic maxillary sinusitis 05/08/2013 Chronic ethmoidal sinusitis 07/25/2012 Nasal septal perforation 07/25/2012 Elevated HDL 05/27/2012 156 !!!!!!! Eosinophilia 05/27/2012 Osteopenia 05/27/2012 dxa 05/22 - - Intolerant to fosamax (GI and systemic)/ evista- Osteoporosis, unspecified 11/16/2010 Allergic rhinitis due to animal hair and dander 08/26/2009 Allergic rhinitis due to pollen 08/26/2009 Severe persistent allergic asthma 08/26/2009 Allergic rhinitis due to other allergen Family History Problem Relation Age of Onset Asthma Mother COPD Hypertension Mother High Cholesterol Mother Breast Cancer Mother 78 Hypertension Father High Cholesterol Father Ovarian Cancer Paternal Grandmother No cardiopulmonary symptoms No upper or lower GI complaints No urinary tract symptoms. No bruising/ bleeding. No neurological complaints . No insomnia.+ . Social History Tobacco Use Smoking status: Former Smoker Packs/day: 0.50 Years: 10.00 Pack years: 5.00 Types: Cigarettes Last attempt to quit: 06/02/1979 Years since quittin.5 Smokeless tobacco: Never Used Substance Use Topics Alcohol use: Yes Alcohol/week: 0.0 standard drinks Comment: wine with dinner Drug use: No OBJECTIVE: BP 139/88 | Pulse 96 | Ht 5' (1.524 m) | Wt 119 lb (54 kg) | SpO2 100% | BMI 23.24 kg/m . Heent neg Neck no JVD, thyromegaly or bruit Lungs Clear CV rrr Abd soft, nontender, no organomegaly Ext no edema; no lesions; pulses intact Neuro: intellect intact ; motor including gait unremarkable A/P No diagnosis found. Patient Instructions Bone health: 1. Take 1000- mg of Calcium/day divided dose and with a meal ( better absorbed with fat ( calcium best out of The diet - Dairy - Winter ( in the can best) sardines) some vegetables -For example cabbage and partcularly bok mitchell 2. Take 800- IU Vit D in the form of cholecalficerol (D3). Avoid ergocalciferol (not absorbed well) 3. Weight bearing exercize (walking, etc.) and strength training 4. Daily exposure to sunlight (though not enought to turn skin pink) 5. I recommend visiting the following web site for more information on Vit D supplementation http://www.[employer]/vitaminDPharmacology.shtml AUTHOR: Marlene Goodwin MD 16:18 12/18/2018 documented in this encounter Plan of Treatment Name Type Priority Associated Diagnoses Order Schedule XR HIP 2 VIEWS UNILAT Imaging Routine Hip pain, acute, right Expected: 02/2019, W/PELVIS RIGHT Expires: 12/18/2019 Name Type Priority Associated Diagnoses Order Schedule REFER TO PHYSICAL Referral Routine Hip pain, acute, right 99 Occurrences starting THERAPY / REHAB 12/18/2018 until 12/19/2019 Health Maintenance Due Date Last Done Comments PNEUMOCOCCAL 0-64 YRS (1 of 07/10/1965 1 - PPSV23) ZOSTER IMMUNIZATION SERIES 07/10/2009 (1 of 2) PAP SMEAR 04/20/2018 04/20/2015, 05/13/2012 INFLUENZA VACCINE (#1) 2018 01/03/2018 COLONOSCOPY SCREENING 08/08/2019 08/07/2009 DEPRESSION SCREENING 10/23/2019 10/22/2018 MAMMOGRAM (SCREENING) 11/01/2019 10/31/2018, 06/22/2017, 06/26/2016, Additional history exists LIPID DISORDER SCREENING 01/27/2022 01/27/2017, 04/24/2015, 05/20/2012 HPV IMMUNIZATION SERIES Aged Out No longer eligible based on patient's age to complete this topic MENINGOCOCCAL VACCINE IMM Aged Out No longer eligible based on patient's age to complete this topic documented as of this encounter Results Not on filedocumented in this encounter Visit Diagnoses Diagnosis Hip pain, acute, right - Primary Osteoporosis, unspecified osteoporosis type, unspecified pathological fracture presence documented in this encounter Insurance Payer Benefit Plan / Subscriber ID Effective Dates Phone Address Type Group [employer] xxxxxxxxxxxx 2018-Present [employer] Guarant[employer] Name Account Type Relation to Date of Phone Billing Patient Address [place] Personal/Family 1960 [address] (Home) [place], [place] [phone] [id number] (Work) documented as of this encounter"
--- NOTE | 2018-12-31 19:31 | ED ---
HPI Chest Pain - HPI Summary HPI Summary: 58 year old F presenting to [facility] accompanied by complains of chest tightness with associated shortness of breath since 12/23/18. The patient states that the chest tightness does not radiate. The patient states she has no pain. The patient states she has some low back discomfort. Patient reports productive cough that started as light green and has progressed to milky white. Patient reports hypertension. Patient reports some intermittent diarrhea since 1 month ago. Patient denies nausea, vomiting, bilateral ankle swelling. Symptoms aggravated by nothing. Symptoms alleviated by Tylenol and breathing treatments. Patient states her last breathing treatment was 15:30 today. Patient states that she developed sore throat and chills on 12/20/18 for which she took Tylenol with relief. Patient states that she received the influenza vaccination at work on 12/23/18 after which she developed chest tightness and shortness of breath. Patient states she thought she was having an asthma exacerbation so she was seen at [facility] on 12/28/18. Patient states she had a fever on 12/27/18 and 12/28/18. Patient states she was started on steroids on 12/31/18. Patient states that on 12/24/18, she started taking monthly medication for her bones. PMHx: asthma, sinus infections. Denies cardiac hx. Denies any other medications. - History of Current Complaint Chief Complaint: EDChestPainROMI Time Seen by Provider: 12/31/18 19:16 Hx Obtained From: Patient Onset/Duration: Started Days Ago - 12/23/18, Still Present Timing: Constant Current Severity: None Chest Pain Radiates: No Character: Tightness Aggravating Factor(s): Nothing Alleviating Factor(s): Other: - Tylenol, breathing treatments Associated Signs and Symptoms: Positive: Negative - nausea, vomiting, bilateral ankle swelling, Shortness of Breath, Productive Cough, Other: - low back discomfort, hypertension, diarrhea - Allergy/Home Medications Allergies/Adverse Reactions: Allergies Allergy/AdvReac Type Severity Reaction Status Date / Time aspirin Allergy Shortness Verified 07/20/18 10:37 of Breath Sulfa (Sulfonamide Allergy Rash And Verified 07/20/18 10:37 Antibiotics) Itching Home Medications: Home Medications Multivitamins/Minerals TAB* [Theragran/minerals TAB*] 1 tab PO DAILY 12/31/18 [ History Confirmed 12/31/18] Vitamin E Mixed [Vitamin E] 1,000 unit PO DAILY 12/31/18 [History Confirmed ] PMH/Surg Hx/FS Hx/Imm Hx Endocrine/Hematology History: Denies: Hx Diabetes, Hx Thyroid Disease Cardiovascular History: Denies: Hx Hypercholesterolemia, Hx Hypertension, Hx Pacemaker/ICD, Hx Peripheral Vascular Disease Respiratory History: Reports: Hx Asthma Denies: Hx Chronic Obstructive Pulmonary Disease (COPD) GI History: Reports: Hx Gastroesophageal Reflux Disease - well controlled Denies: Hx Ulcer History: Denies: Hx Renal Disease Musculoskeletal History: Reports: Hx Arthritis - left ankle, Hx Osteoporosis Denies: Hx Rheumatoid Arthritis Sensory History: Reports: Hx Contacts or Glasses - READING GLASSES Denies: Hx Cataracts, Hx Glaucoma, Hx Hearing Aid Opthamlomology History: Reports: Hx Contacts or Glasses - READING GLASSES Denies: Hx Cataracts, Hx Glaucoma Neurological History: Denies: Hx Headaches, Hx Seizures, Hx Transient Ischemic Attacks (TIA) Psychiatric History: Denies: Hx Anxiety, Hx Depression, Hx Panic Disorder - Surgical History Surgery Procedure, Year, and Place: sinus polyp removal x3. Right foot metal plate (2010). ORIF LEFT ANKLE 2014 [facility] Hx Anesthesia Reactions: No Infectious Disease History: No Infectious Disease History: Denies: Hx Clostridium Difficile, Hx Hepatitis, Hx Human Immunodeficiency Virus (HIV), Hx of Known/Suspected MRSA, Hx Shingles, Hx Tuberculosis, History Other Infectious Disease, Traveled Outside the [place] in Last 30 Days - Family History Known Family History: Negative: Cardiac Disease, Hypertension, Diabetes - Social History Alcohol Use: Daily Alcohol Amount: 1-2 glasses of wine daily Hx Substance Use: No Substance Use Type: Reports: None Hx Tobacco Use: No Smoking Status (MU): Former Smoker Have You Smoked in the Last Year: No Review of Systems - ROS Summary Review of Systems Summary: Home Medications Medication Instructions Recorded Confirmed Type Albuterol HFA INHALER* [Ventolin 1 puff INH Q4H PRN 08/16/15 12/31/18 History HFA Inhaler*] Biotin 1 mg PO DAILY 08/16/15 12/31/18 History Budesonide/Formote 160/4.5(NF) 2 puff INH BID 08/16/15 12/31/18 History [Symbicort 160/4.5 (NF)] Calcium Citrate TAB* [Citracal 200 mg PO DAILY 08/16/15 12/31/18 History TAB*] Cetirizine* [ZyrTEC*] 10 mg PO DAILY 08/16/15 12/31/18 History Cyanocobalamin TAB* [Vitamin B12 500 mcg PO DAILY 08/16/15 12/31/18 History TAB*] Glucosamine HCl [Glucosamine] 500 mg PO DAILY 08/16/15 12/31/18 History Montelukast Sodium TAB* [Singulair 10 mg PO BEDTIME 08/16/15 12/31/18 History TAB*] Omalizumab (NF) [Xolair (NF)] 150 mg SC MONTHLY 08/16/15 12/31/18 History Pyridoxine TAB* [Vitamin B6 TAB*] 50 mg PO DAILY 08/16/15 12/31/18 History Triamcinolone NASAL SPRAY* 1 puff NASAL DAILY 08/16/15 12/31/18 History [Nasacort AQ Nasal [place]*] Albuterol 2.5MG/3ML (0.083%)* 2.5 mg INH Q4H #1 neb.mily 07/20/18 12/31/18 Rx [Ventolin 2.5 MG/3 ML NEB.MILY*] predniSONE [Prednisone 20 MG TAB] 20 mg PO SEE INSTRUCTIONS #12 07/20/18 Rx tablet Multivitamins/Minerals TAB* 1 tab PO DAILY 12/31/18 12/31/18 History [Theragran/minerals TAB*] Vitamin E Mixed [Vitamin E] 1,000 unit PO DAILY 12/31/18 12/31/18 History Positive: Other - chest tightness, hypertension Positive: Shortness Of Breath, Cough Positive: Diarrhea. Negative: Vomiting, Nausea Musculoskeletal: Negative - bilateral ankle swelling Positive: Other - low back discomfort All Other Systems Reviewed And Are Negative: Yes Physical Exam - Summary Physical Exam Summary: General: Well-developed, Well-nourished FEMALE. No acute distress. HEENT: Normocephalic, Atraumatic. Eyes: Conjuctiva normal, PERRL. Ears: TMs within normal limits. Nares: (-) discharge, (-) erythema. Oropharynx: Clear, mucous membranes moist, (-) exudates. Neck: Soft, FROM, (-) lymphadenopathy, (-) thyromegaly, (-) JVD. Cardiovascular: Normal sinus rhythm, (-) murmur. Lungs: Fair air exchange, mild tight wheezing throughout Abdomen: Soft, non-tender, non-distended, (-) organomegaly, normal bowel sounds. Back: (-) CVA tenderness Extremities: No edema. Skin: Warm, dry, (-) rash. Neuro: Alert and oriented x3, no focal deficits. Psychiatric: Patient is mildly anxious Triage Information Reviewed: Yes Vital Signs On Initial Exam: Initial Vitals Temp Pulse Resp BP Pulse Ox 98.3 F 82 20 190/109 100 12/31/18 19:03 12/31/18 19:03 12/31/18 19:03 12/31/18 19:03 12/31/18 19:03 Vital Signs Reviewed: Yes Diagnostics - Vital Signs Vital Signs Temp Pulse Resp BP Pulse Ox 12/31/18 19:03 98.3 F 82 20 190/109 100 - Laboratory Result Diagrams: 12/31/18 19:54 12/31/18 19:54 Lab Statement: Any lab studies that have been ordered have been reviewed, and results considered in the medical decision making process. - Radiology CXR Radiology Interpretation Completed By: ED Physician Summary of Radiographic Findings: No obvious infiltrate or effusion. Pending official report - EKG 191 Cardiac Rate: NL - 94 BPM EKG Rhythm: Sinus Rhythm Summary of EKG Findings: EKG at 19:11 reveals normal sinus rhythm with rate of 94 BPM, no acute changes, no ischemic changes. Non STEMI. This EKG was reviewed and interpreted by Dr. Edmond. Re-Evaluation - Re-Evaluation First Eval Re-Evaluation Time: 22:16 Change: Improved Comment: I have discussed results with the patient and her symptoms have resolved. Discussed symptoms that warrant immediate return to ED. Chest Pain Course/Dx - Course Course Of Treatment: 58 year old F presenting to [facility] accompanied by complains of non-radiating chest tightness with associated shortness of breath since 12/23/18. Patient reports productive cough that started as light green and has progressed to milky white, hypertension, some intermittent diarrhea. Patient denies nausea, vomiting, bilateral ankle swelling. Patient has treated her symptoms with Tylenol and breathing treatments with relief. Patient states her last breathing treatment was 15:30 today. Patient states that she developed sore throat and chills on 12/20/18 for which she took Tylenol with relief. Patient states that she received the influenza vaccination at work on 12/23/18 after which she developed chest tightness and shortness of breath. Patient states she thought she was having an asthma exacerbation so she was seen at [facility] on 12/28/18. Patient states she had a fever on 12/27/18 and 12/28. Patient states she was started on steroids on 12/31/18. Patient states that on 12/24/18, she started taking monthly medication for her bones. PMHx: asthma, sinus infections. Denies cardiac hx. Denies any other medications. Physical exam findings: Fair air exchange, mild tight wheezing throughout. Patient is mildly anxious. EKG at 19:11 reveals normal sinus rhythm with rate of 94 BPM, no acute changes, no ischemic changes. Non STEMI. This EKG was reviewed and interpreted by Dr. Edmond. CXR shows no obvious infiltrate or effusion. Bloodwork results with no significant abnormalities except for MCH 32, platelets 467, MPV 6.1, sodium 132, chloride 96, anion gap 12, BUN/Creatinine 35.0, glucose 110, alkaline phosphatase 117. In the ED course, the patient was given 1 Duoneb. The patient feels better and would like to go home. Patient will be discharged home with her primary care provider in 3 days. Patient was instructed to return to Emergency Department for new or worsening symptoms. Patient understands and is agreeable to this plan. - Diagnoses Provider Diagnoses: Asthma exacerbation Is Visit Related: No Discharge ED - Sign-Out/Discharge Documenting (check all that apply): Patient Departure - Discharge Patient Received Moderate/Deep Sedation with Procedure: No - Discharge Plan Condition: Stable Disposition: HOME Prescriptions: predniSONE [Prednisone 20 MG TAB] 20 mg PO DAILY 14 Days #24 tablet Patient Education Materials: Asthma (ED) Referrals: Marlene Goodwin MD [Primary Care Provider] - 3 Days Additional Instructions: Please follow up with your primary care physician within 3 days. Please return to Emergency Department for any new or worsening symptoms. - Billing Disposition and Condition Condition: STABLE Disposition: Home - Attestation Statements Document Initiated by Scribe: Yes Documenting Scribe: Poppy Beltrán Provider For Whom Scribe is Documenting (Include Credential): Stephanie Edmond MD Scribe Attestation: I, Poppy Beltrán, scribed for Stephanie Edmond MD on 01/01/19 at 0042. Scribe Documentation Reviewed: Yes Provider Attestation: The documentation as recorded by the scribe, Poppy Beltrán accurately reflects the service I personally performed and the decisions made by me, Stephanie Edmond MD Status of Scribe Document: Viewed
[2018-12-31] MEDS ORDERED: Albuterol/Ipratropium NEB.SOL* Albuterol 2.5 MG/Ipratropium 0.5 MG 3 ML INH ONE (19:58)
[2018-12-31 20:22] LABS: ABS Lymphocytes 1.2 10^3/ul (1.0-4.8); ABS Monocytes 0.7 10^3/ul (0-0.8); ABS Neutrophils 6.5 10^3/ul (1.5-7.7); Hematocrit 42 % (35-47); Hemoglobin 14.5 g/dL (12.0-16.0); Lymphocyte % 14.5 %; Mean Corpuscular HGB Conc 35 g/dL (31-36); Mean Corpuscular Hemoglobin 32 pg (27-31); Mean Corpuscular Volume 93 fL (80-97); Mean Platelet Volume 6.1 fL (7.4-10.4); Platelet Count 467 10^3/uL (150-450); Red Blood Count 4.52 10^6 /uL (3.70-4.87); Red Cell Distribution Width 12 % (10-15); White Blood Count 8.4 10^3/uL (3.5-10.8)
[2018-12-31 20:43] LABS: Albumin 4.8 g/dL (3.2-5.2); Albumin/Globulin Ratio 1.3 (1-3); Calcium 10.3 mg/dL (8.6-10.3); EGFR African American 123.8 (>60); EGFR Non-African American 102.3 (>60); Globulin 3.6 g/dL (2-4); Total Bilirubin 0.4 mg/dL (0.2-1.0); Total Protein 8.4 g/dL (6.4-8.9); Troponin I 0.01 ng/mL (<0.04)
[2018-12-31 20:57] LABS: Potassium 3.9 mmol/L (3.5-5.0)
[2018-12-31 21:59] VITALS: BP 152/86
== END 2018-12-31 22:25 | disposition home or self-care (01) ==
LOC: ED 19:00
DX: J45.901 Unspecified asthma with (acute) exacerbation (principal); K21.9 Gastro-esophageal reflux disease without esophagitis; Z87.891 Personal history of nicotine dependence; Z88.6 Allergy status to analgesic agent; Z88.2 Allergy status to sulfonamides; Z79.899 Other long term (current) drug therapy
CPT/HCPCS: 36415; 71046; 80053; 84484; 85025; 85379; 85610; 93005; 99283; A9270-GY